=== PATIENT | female | born 1950 | race Hispanic/Latino ===

== ENCOUNTER 2017-07-17 08:20 | Day surgery (SDC) | payer OTHER, MEDICARE ==
[2017-07-16 15:55] VITALS: BMI 43.0
[2017-07-17] MEDS ORDERED: CEFAZOLIN/Water 2 GM/20 ML SYRINGE ONE (09:56)
[2017-07-17] MEDS ORDERED: Levofloxacin 500 mg/D5W 100 ml Premix Bag ONE (10:44)
[2017-07-17] MEDS ORDERED: Iothalamate Meglumine 60% 50 ML VIAL FS ONE (11:01)
[2017-07-17] MEDS ORDERED: Indomethacin 50 MG SUPP ONE (11:01)
[2017-07-17] MEDS ORDERED: Fentanyl 100 MCG/2 ML VIAL ONE (11:05)
[2017-07-17] MEDS ORDERED: ePHEDrine/0.9% NaCl/PF SYRINGE 50 mg/10 ml ONE (12:49)
[2017-07-17] MEDS ORDERED: PROPOFOL 200 MG/20 ML VIAL ONE (12:49)
[2017-07-17] MEDS ORDERED: PHENYLEPHRINE-NS 100 MCG/ML 10 ML SYRINGE ONE (12:49)
[2017-07-17] MEDS ORDERED: Lidocaine 1% PF 5 ML VIAL ONE (12:49)
[2017-07-17] MEDS ORDERED: Succinylcholine Chloride 20 MG/ML 10 ml SYRINGE FS ONE (12:49)
[2017-07-17] MEDS ORDERED: Ondansetron ODT 4 MG TAB ONE (13:41)
--- NOTE | 2017-07-17 13:51 | RAD ---
ERCP INTRAOPERATIVE FLUOROSCOPY: Date: 07/17/17 HISTORY: Abdominal pain. FINDINGS/IMPRESSION: Intraoperative fluoroscopy provided for ERCP as performed by Dr. Freeman. Spot fluoroscopic images zoila w endoscopic catheter overlying the right upper quadrant. Common duct is dilated, estimated at 1.4 cm . No filling defects are reliably demonstrated. Gallbladder is partially opacified. Final image shows radiopaque stent overlying the course of the common duct. POS: GUS
[2017-07-17 15:10] LABS: ALT (SGPT) 18 U/L (8-55); AST (SGOT) 19 U/L (5-34); Albumin 3.9 g/dL (3.4-4.8); Alkaline Phosphatase 107 U/L (40-150); Anion Gap 15 mmol/L (10-20); BUN (Urea Nitrogen) 11 mg/dL (9.8-20.1); Bilirubin, Total 0.4 mg/dL (0.2-1.2); Calc. Creatinine Clearance 134 mL/min (70-130); Calcium 8.9 mg/dL (7.8-10.44); Carbon Dioxide 25 mmol/L (23-31); Chloride 102 mmol/L (98-107); Estimated GFR-MDRD Greater than 90; Glucose 128 mg/dL (80-115); Lipase 28 U/L (8-78); Protein, Total 6.9 g/dL (6.0-8.3); Sodium 138 mmol/L (136-145)
--- NOTE | 2017-07-18 08:24 | OP ---
DATE OF PROCEDURE: 07/17/2017 PREPROCEDURE DIAGNOSES: 1. Recurrent epigastric pain. 2. Ultrasound in [place] showing a possible small stones and sludge in the gallbladder and suggestiv e of choledocholithiasis with a 9 mm duct. 3. Interestingly LFTs were normal, both there and in my office. POSTPROCEDURE DIAGNOSES: 1. 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 2. Questionable common bile duct filling defects. 3. The patient has a 12 mm common bile duct and a dilated gallbladder. 4. A stent was placed across the stricture. RECOMMENDATIONS: 1. Hold off on cholecystectomy. 2. CT scan, thin cuts the pancreas. 2. If this is nondiagnostic, we will refer to [facility] for an EUS or choledochoscopy with Dr. Alfredo cuevas. ANESTHESIA: General endotracheal anesthesia. The patient received Levaquin 500 mg IV x1 and Indocin suppositories for ERCP pancreatitis prophylaxis. DESCRIPTION OF PROCEDURE: Once the patient was intubated and placed in prone position, a journalism teacher film was obtained which was normal. The endoscope was advanced in the esophagus, stomach, second portion of duodenum, which were normal. Ampulla was brought into view. There was minimal drainage of bile s een; however, I was not concerned by this as her LFTs were normal in my office 2 days ago. Cannulati on was obtained, but not deep cannulation. A guidewire could not be advanced as it would coil in the distal duct. A small injection of contrast showed good flow up into the common bile duct which was dilated about 12 mm. We tried using Glidewire to get up in the bile duct and that was not successful . Once we repositioned the catheter multiple times, we were able to advance it up into the common bi le duct. A cholangiogram was then obtained showing a stricture in the distal common bile duct just a bout a centimeter above the ampulla. A 9 mm balloon could be pulled through this with quite a bit of resistance and deformation of the balloon, but no stones were seen. There were possibly few small c ommon bile duct filling defects. Intrahepatic ducts were slightly prominent. Decision at this point time was made to place a stent across the distal common bile duct stricture and proceed with further imaging and will possibly need choledochoscopy or EUS depending on the findings of the CT scan. The patient was extubated and brought to recovery room in stable condition. The findings were discussed with the patient's family.
--- NOTE | 2017-07-18 17:26 | PRG ---
DATE OF SERVICE: 07/18/2017 SUBJECTIVE: Ms. Garcia returned to the hospital last night after going home after ERCP. Family vicky led and she was having persistent nausea, vomiting, not much pain. I recommended they come back. In the emergency room, she was found to be afebrile. She had stable vital signs, but she had mildly el evated lipase of 847, we started bringing with possible post-ERCP pancreatitis and earlier in the day when she had been at the facility still, it had been normal at 28. She had a CAT scan that showed n o signs of pancreatitis, pancreatic masses. Stent was noted at the common bile duct may raise the co ncern that was in the duct distally, but proximally that maybe was out of the duct or in the cystic d uct, reviewed this with the Radiology, it is in the right hepatic duct. Presently, her daughter stat es she feels much better. She is little achy all over, but has no more nausea, vomiting, and is hung ry. OBJECTIVE: VITAL SIGNS: Temperature is 97, pulse 64, blood pressure 147/72. ABDOMEN: Soft, nontender without rebound or guarding. Bowel sounds positive. EXTREMITIES: Reveal no clubbing, cyanosis or edema. LUNGS: Clear. LABORATORY STUDIES: Sodium is 138, potassium 3.8, BUN and creatinine are 10 and 0.58. Liver functio n tests are normal. Lipase is down from 847-420. White count was 13.1, hemoglobin 13.8, platelet co unt is 249. ASSESSMENT AND PLAN: 1. Post-endoscopic retrograde cholangiopancreatography, nausea, vomiting, she had mild elevation in lipase, but no findings of pancreatitis on CT that she may have mild post-endoscopic retrograde chola ngiopancreatography pancreatitis. She has been given IV fluids a liter yesterday after endoscopic re trograde cholangiopancreatography, a liter in the emergency room and 250 mL an hour, now down to 150 an hour. She shows no signs of fluid overload. We will start her on clear liquids. If she tolerate s this, she is going to full liquids and otherwise if her lipase is fine, tomorrow morning she will g o home. 2. Biliary stricture. We placed a stent across the stricture and was found at distal duct at the ti me of endoscopic retrograde cholangiopancreatography. No stones were seen in the gallbladder or the common bile duct. I will make a referral to see a interventional gastrologist in [place] next week o r two to evaluate the stricture in more detail, this may be a suprapapillary stenosis, although seems to be an atypical takeoff. It has been a low split in the common hepatic duct one wonders if there is a component of choledochocele. I saw no overt signs of malignancy on CAT scan or endoscopic retro grade cholangiopancreatography initially with a stricture, her LFTs are normal prior to her endoscopi c retrograde cholangiopancreatography. 3. With regards to her home medications, simvastatin and metoprolol, we will continue those.
== END 2017-07-17 18:05 | disposition home or self-care (01) ==
LOC: SDC 08:20
PROVIDERS: ATTEND Internal Medicine Gastroenterology
PROC: 0F798DZ Dilation of Common Bile Duct with Intraluminal Device, Via Natural or Artificial Opening Endoscopic (ICD-10-PCS; principal; 2017-07-17)
DX: K83.1 Obstruction of bile duct (principal); K21.9 Gastro-esophageal reflux disease without esophagitis; E78.00 Pure hypercholesterolemia, unspecified; M19.90 Unspecified osteoarthritis, unspecified site; I10 Essential (primary) hypertension; Z79.899 Other long term (current) drug therapy; Z88.0 Allergy status to penicillin
CPT/HCPCS: 36415; 74330; 80053; 83690; C1769; J1610; J1956; J2001; J2704; J3010; Q0162; Q9961

== ENCOUNTER 2017-07-17 21:05 | Observation (INO) | payer OTHER, MEDICARE ==
[~2017-07-17 21:05] MED LIST: ISOVUE-370 76%-LOCM 1 ML ONE
[2017-07-17] MEDS ORDERED: Metoclopramide HCl 10 MG/2 ML VIAL ONE (21:38)
[2017-07-17] MEDS ORDERED: Pantoprazole 40 MG VIAL ONE (21:38)
[2017-07-17 21:58] LABS: #Lymphocytes 1.5 thou/uL (1.20-3.40); #Monocytes 0.5 thou/uL (0.11-0.59); #Neutrophils 11.1 thou/uL (1.40-6.50); %Basophils 0.1 % (0.0-1.0); %Eosinophils 0.2 % (0.0-10.0); %Lymphocytes 11.1 % (21.0-51.0); %Monocytes 3.8 % (0.0-10.0); %Neutrophils 84.8 % (42.0-75.0); Hemoglobin 13.8 g/dL (12.0-16.0); Mean Corpuscular HGB CONC 34.7 g/dL (32.0-36.0); Mean Corpuscular Hemoglobin 29.1 pg (27.0-31.0); Mean Corpuscular Volume 83.8 fl (81.0-99.0); Platelet Count 249 thou/uL (130-400); RBC Distribution Width 12.4 % (11.5-14.5); Red Blood Cell (RBC) Count 4.75 mill/uL (4.20-5.40); White Blood Cell (WBC) Count 13.1 thou/uL (4.8-10.8)
[2017-07-17 22:21] LABS: ALT (SGPT) 20 U/L (8-55); AST (SGOT) 25 U/L (5-34); Albumin 4.3 g/dL (3.4-4.8); Alkaline Phosphatase 118 U/L (40-150); Anion Gap 15 mmol/L (10-20); BUN (Urea Nitrogen) 11 mg/dL (9.8-20.1); Bilirubin, Total 0.6 mg/dL (0.2-1.2); Calc. Creatinine Clearance 0 mL/min (70-130); Calcium 9.2 mg/dL (7.8-10.44); Carbon Dioxide 25 mmol/L (23-31); Chloride 98 mmol/L (98-107); Estimated GFR-MDRD 90; Globulin 3.3 g/dL (2.4-3.5); Glucose 139 mg/dL (80-115); Lipase 847 U/L (8-78); Potassium 4.2 mmol/L (3.5-5.1); Protein, Total 7.6 g/dL (6.0-8.3); Sodium 134 mmol/L (136-145)
--- NOTE | 2017-07-17 22:45 | CT ---
CT ABDOMEN WITH CONTRAST CT PELVIS WITH CONTRAST: DATE: 07/17/17 TIME: 10:13 p.m. HISTORY: 67-year-old female with nausea, emesis, and epigastric pain (burning sensation). COMPARISON: None. TECHNIQUE: IV injection of iodinated contrast media: Administered Oral contrast media: Not administered FINDINGS: There is no consolidation or pleural effusion at the lung bases. No ascites. The bilateral kidneys, a drenals, pancreas, appendix, and spleen, are normal. There is enteric contrast material in multiple n ondilated loops of ileum, and ascending colon, as well as in the gallbladder lumen, from very recent ERCP. There is a biliary stent within the common bile duct, with inferior portion at the expected reg ion of ampulla of Vater. The superior aspect is in the hepatic hilum. It is external to an air filled , dilated common hepatic duct, which has a caliber of 14 mm, and is anterior to, paralleling the uppe r aspect of this biliary stent. There is a cluster of small foci of extraluminal gas in the right hep atic hilum, external to the gallbladder and external to the liver parenchyma and bile ducts. The gallbladder has normal wall thickness. It has gas in the nondependent portion causing an air-flui d level with the contrast material in the lumen. The gas dilated common hepatic duct is contiguous with gas in the left hepatic duct and its branches. There is a tiny amount of gas in one of the branches of the right hepatic duct. No hepatic abscess o r tumor mass. Small sliding hiatal hernia. The appendix and urinary bladder are normal. IMPRESSION: 1. Status post recent ERCP. 2. Status post biliary stent placement. The lower portion is in the common bile duct. The upper portion is malpositioned, not within the common hepatic duct. It is either extraluminal, or within th e cystic duct. 3. Pneumobilia with air-dilated common hepatic duct (which does not contain the upper portion of the biliary stent). WENDY Bernabe POS: JIE
[2017-07-17 22:50] LABS: Bilirubin Negative (Negative); Blood, Urine Negative (Negative); Clarity CLEAR (Clear); Glucose, Urine (Dipstick) Negative (Negative); Leukocyte Negative (Negative); Nitrite Negative (Negative); Protein, Urine (Dipstick) Negative (Neg-Trace); Urobilinogen 0.2 mg/dL (0.2-1.0); pH, Urine 7.5 (5.0-9.0)
[2017-07-17] MEDS ORDERED: Ondansetron ODT 4 MG TAB SL PRN (23:49)
[2017-07-17] MEDS ORDERED: Morphine 4 MG/ML VIAL SLOW IVP PRN (23:49)
[2017-07-17] MEDS ORDERED: Ondansetron HCl/PF 4 MG/2 ML Vial IVP PRN (23:49)
[2017-07-17] MEDS ORDERED: Sodium Chloride 0.9% 1,000 ML IV SCH (23:49)
[2017-07-18 00:03] VITALS: BMI 34.3
[2017-07-18] MEDS: Sodium Chloride 0.9% 1,000 ML IV SCH ×4 (03:45→21:35)
[2017-07-18 04:55] LABS: ALT (SGPT) 15 U/L (8-55); AST (SGOT) 22 U/L (5-34); Albumin 3.5 g/dL (3.4-4.8); Alkaline Phosphatase 93 U/L (40-150); Anion Gap 9 mmol/L (10-20); BUN (Urea Nitrogen) 10 mg/dL (9.8-20.1); Bilirubin, Total 0.4 mg/dL (0.2-1.2); Calc. Creatinine Clearance 141 mL/min (70-130); Calcium 8.3 mg/dL (7.8-10.44); Carbon Dioxide 28 mmol/L (23-31); Chloride 105 mmol/L (98-107); Estimated GFR-MDRD Greater than 90; Globulin 2.7 g/dL (2.4-3.5); Glucose 114 mg/dL (80-115); Lipase 420 U/L (8-78); Potassium 3.8 mmol/L (3.5-5.1); Protein, Total 6.2 g/dL (6.0-8.3); Sodium 138 mmol/L (136-145)
[2017-07-18] MEDS ORDERED: Prevnar 13-Val Conj/PF 0.5 ML SYRINGE IM ONE (09:00)
[2017-07-18] MEDS ORDERED: Acetaminophen 325 MG TAB PO PRN (14:32)
[2017-07-18] MEDS ORDERED: Ondansetron HCl/PF 4 MG/2 ML Vial IVP PRN (14:32)
[2017-07-18] MEDS ORDERED: Morphine 4 MG/ML VIAL SLOW IVP PRN (14:33)
[2017-07-18] MEDS ORDERED: Simvastatin 20 MG TAB PO SCH (21:00)
[2017-07-19] MEDS: Sodium Chloride 0.9% 1,000 ML IV SCH ×2 (00:56→11:30)
[2017-07-19 04:12] LABS: #Eosinphils 0.1 thou/uL (0.0-0.7); #Lymphocytes 2.3 thou/uL (1.20-3.40); #Monocytes 0.8 thou/uL (0.11-0.59); %Basophils 0.3 % (0.0-1.0); %Eosinophils 1.7 % (0.0-10.0); %Lymphocytes 27.6 % (21.0-51.0); %Monocytes 9.6 % (0.0-10.0); %Neutrophils 60.8 % (42.0-75.0); Hemoglobin 11.4 g/dL (12.0-16.0); Mean Corpuscular HGB CONC 34.2 g/dL (32.0-36.0); Mean Corpuscular Hemoglobin 28.8 pg (27.0-31.0); Mean Corpuscular Volume 84.3 fl (81.0-99.0); Mean Platelet Volume 8.7 fL (7.4-10.4); Platelet Count 213 thou/uL (130-400); RBC Distribution Width 12.6 % (11.5-14.5); Red Blood Cell (RBC) Count 3.94 mill/uL (4.20-5.40); White Blood Cell (WBC) Count 8.2 thou/uL (4.8-10.8)
[2017-07-19 04:29] LABS: ALT (SGPT) 22 U/L (8-55); AST (SGOT) 31 U/L (5-34); Albumin 3.5 g/dL (3.4-4.8); Alkaline Phosphatase 89 U/L (40-150); Anion Gap 11 mmol/L (10-20); BUN (Urea Nitrogen) 9 mg/dL (9.8-20.1); Bilirubin, Total 0.5 mg/dL (0.2-1.2); Calc. Creatinine Clearance 136 mL/min (70-130); Calcium 8.6 mg/dL (7.8-10.44); Carbon Dioxide 27 mmol/L (23-31); Chloride 106 mmol/L (98-107); Estimated GFR-MDRD Greater than 90; Globulin 2.5 g/dL (2.4-3.5); Glucose 97 mg/dL (80-115); Lipase 22 U/L (8-78); Potassium 3.6 mmol/L (3.5-5.1); Sodium 140 mmol/L (136-145)
[2017-07-19 08:13] VITALS: BP 170/82; TEMP 97.7
[2017-07-19] MEDS ORDERED: Pantoprazole 40 MG VIAL IVP SCH (09:00)
--- NOTE | 2017-07-19 22:14 | DIS ---
DATE OF ADMISSION: 07/17/2017 DATE OF DISCHARGE: 07/19/2017 DISCHARGE DISPOSITION: Patient was discharged to home. DISCHARGE INSTRUCTION: 1. Patient will continue all the hold medicine before. 2. Patient will follow up with Dr. Freeman next week to make an appointment to see him. HOSPITAL COURSE: Mrs. Stephani Garcia is a very pleasant 67-year-old female who had an ERCP by Dr. Freeman, had a stent placed. Apparently, she appears to have a bilious stricture. The pa tiebrandon at this time came back to the ER because of abdominal pain, abdominal bloating and nausea. She was found to have evidence of pancreatitis. She was hospitalized because of no reason. She was on clear liquid diet yesterday and was advanced to a regular diet last night. She is tolerating diet. She has no abdominal pain, no nausea, no vomiting. She had a bowel movement this morning. LABORATORY DATA: The lab data from today shows normal CBC: WBC 8200. Chemistry panel shows normal LFTs and also lipase down to 22 from 420. PHYSICAL EXAMINATION: GENERAL: Appears comfortable. VITAL SIGNS: She is afebrile. Pulse is 66, blood pressure 170/82. CARDIOVASCULAR: Within normal limits. LUNGS: Within normal limits. ABDOMEN: Soft to palpate. No organomegaly. No tenderness. No mass. FINAL DISCHARGE DIAGNOSIS: Mild post-ERCP pancreatitis, resolved. The patient is advised to start t aking all the hold medicine before and see Dr. Freeman early next week.
== END 2017-07-19 11:40 | disposition home or self-care (01) ==
LOC: ERS 21:05 → SJJU 22:44
PROVIDERS: ADMIT Internal Medicine Gastroenterology; ATTEND Internal Medicine Gastroenterology
DX: K85.90 Acute pancreatitis without necrosis or infection, unspecified (principal); K21.9 Gastro-esophageal reflux disease without esophagitis; E78.00 Pure hypercholesterolemia, unspecified; I10 Essential (primary) hypertension; Z88.0 Allergy status to penicillin; Z79.899 Other long term (current) drug therapy; Z98.890 Other specified postprocedural states
CPT/HCPCS: 36415; 74177; 74330; 80053; 81003; 83690; 85025; 90471; 90670; 96361; 96365; 96375; C1769; C9113; G0009; G0378; J1610; J1956; J2001; J2704; J2765; J3010; Q0162; Q9961